=== PATIENT | male | born 1960 | race Caucasian/White ===

== ENCOUNTER 2020-08-16 12:40 | Emergency (ER) | payer OTHER, SELFPAY ==
[2020-08-16 12:41] VITALS: BP 138/78; PULSE 123; RESP 16; TEMP 36.8; O2SAT 98; BMI 23.3
--- NOTE | 2020-08-16 14:07 | EKG12_ITS ---
Test Reason : Blood Pressure : / mmHG Vent. Rate : 114 BPM Atrial Rate : 114 BPM P-R Int : 128 ms QRS Dur : 096 ms QT Int : 326 ms P-R-T Axes : 070 -33 063 degrees QTc Int : 449 ms Sinus tachycardia Left axis deviation Abnormal ECG Confirmed by PEEWEE POLLOCK, KAMILAH ([id number]), legal editor TRU BROWN ([id number]) on 08/17/2020 1:10:33 PM Referred By: SHANTELLE Confirmed By:KAMILAH VIDES MD
--- NOTE | 2020-08-16 14:08 | RAD_ITS ---
STUDY: X-RAY CHEST REASON FOR EXAM: Male, 60 years old. weakness, sob TECHNIQUE: Frontal view of the chest COMPARISON: 13 May 2013 FINDINGS: The lungs are clear and expanded. There is no demonstrated pleural abnormality. Normal size heart. Normal mediastinum and anika. Normal visualized pulmonary arteries. Normal visualized aortic arch and descending thoracic aorta. Normal visualized thoracic spine. Normal visualized ribs, clavicles, and shoulders. There is no demonstrated abnormality of the visualized soft tissue structures of the upper abdomen. RAD/Chest 1 View (Portable) IMPRESSION: Normal x-ray examination of the chest. Electronically Signed: Francis Hardy MD at 15:22 EDT Tel , Service support ,
--- NOTE | 2020-08-16 14:09 | EX.ED.DYSGE1 ---
HPI History of Present Illness Chief Complaint: Weakness Informant: patient and spouse/S.O. Onset/Context/Timing Onset: Weeks (1) Context: Gradual Onset Timing: Continuous Quality: weak Location: all over Current Severity: Severe Maximum Severity: Severe Worsened by: nothing Relieved by: nothing Associated Symptoms Associated Symptoms: n/v/d, a hair more short of breath w/ exertion than usual Narrative Narrative: Patient states he has a high-grade neuroendocrine tumor for which he is on IV immunotherapy for for the past 8 or 9 weeks, he has been knowledgeable about the cancer for about the past 8 years. He is on no medications for anything else. For the past week he has been feeling weak with low energy, especially for the past 3 days when he developed vomiting and diarrhea. Vomiting is nonbilious nonbloody, diarrhea is less than 5 times per day and just watery without blood. He denies any pain anywhere including his abdomen, head, chest. He states he chronically has some mild dyspnea with exertion and it feels like it is a little worse. No pleuritic symptoms. No lightheadedness or palpitations. PFSH PFSH Medical History Cancer Neuroendocrine tumor Non-smoker Home Medications prochlorperazine maleate 10 mg PO PRN PRN 08/16/20 [History Last Taken 08/16/20] Allergy/AdvReac Type Severity Reaction Status Date / Time aspirin AdvReac Other Verified 08/16/20 12:45 Social History Smoking Status: Never smoker ROS ROS ED Constitutional Constitutional ED: Reports as per HPI, anorexia and weakness; Denies chills or fever(s) Eyes Eyes: Denies change in vision or diplopia ENT ENT ED: Denies rhinorrhea or sore throat Cardiovascular Cardiovascular: Denies chest pain, orthopnea or palpitations Respiratory/Chest Respiratory/Chest: Reports as per HPI and dyspnea on exertion; Denies cough or orthopnea Gastrointestinal Gastrointestinal: Reports diarrhea, nausea and vomiting; Denies abdominal pain, coffee ground emesis, hematemesis, hematochezia or melena Genitourinary Genitourinary ED: Denies dysuria or hematuria Musculoskeletal Musculoskeletal: Denies back pain or neck pain Integumentary Denies abscess or rash Neurologic Neurologic: Denies headache(s), paresthesias or weakness Psychiatric Psychiatric: Denies anxiety or suicidal thoughts EXAM Physical Exam Const Vital Signs: 08/16/20 12:41 Temperature 98.3 F Temperature Source Temporal Pulse Rate 123 H Respiratory Rate 16 Blood Pressure 138/78 H Blood Pressure Mean 98 Pulse Ox 98 Oxygen Delivery Method Room Air Positive well nourished and well developed General Appearance ED: well developed and NAD HEENT Reports moist mucous membranes normocephalic and atraumatic Eyes PERRL and EOMs intact bilaterally Neck full ROM and supple Resp normal respiratory effort and clear to auscultation bilaterally Cardio regular rate, regular rhythm and no murmurs Rate: tachycardic GI non-tender and non-distended Auscultation: normoactive bowel sounds Palpation: soft Back/Spine no CVA tenderness General Back: other FROM Extremity normal to inspection General Extremety ED: Negative for edema, pulses abnormal or tenderness General Extremity: Negative for edema or pulses abnormal Neuro oriented x3, CN's II-XII intact bilaterally and no sensory deficits noted Sensorium / Orientation: awake and alert Motor Exam: strength 5/5 throughout Skin no rashes or lesions noted and no wounds MDM MDM MDM Narrative Medical decision making narrative: Patient's work-up is largely unremarkable with the exception of a slightly low potassium (3.4, probably not low enough to be causing this degree of weakness) and prerenal azotemia with a normal creatinine. His 1 view chest x-ray amount of rotation is negative for anything acute. His D-dimer is 0.50, which is well within normal limits when corrected for age. Since there is no pleural effusion or other x-ray abnormality or physical exam abnormality in his lungs, I do not think he needs further thoracic imaging at this time. It is certainly possible this is somehow related to his neuroendocrine tumor or the immunotherapy medications he is receiving. He was offered admission but he is strong enough to stand and walk on his own and has an appointment with his oncologist at [facility] in the morning, so I printed out a copy of his test results to take with him. They are comfortable with this overall plan of discharge home and close outpatient follow-up as scheduled. Lab Data Attestation: I reviewed the patient's lab results. Labs: Laboratory Results - last 24 hr 08/16/20 08/16/20 08/16/20 13:20 13:20 13:20 WBC 11.1 H RBC 4.85 Hgb 14.3 Hct 43.2 MCV 89.1 MCH 29.5 MCHC 33.1 RDW Std Deviation 46.6 H RDW Coeff of Yaya 14.5 Plt Count 482 H MPV 10.5 Immature Gran % (Auto) 1.100 H Neut % (Auto) 72.2 H Lymph % (Auto) 9.9 L Kendall % (Auto) 14.1 H Eos % (Auto) 1.8 Baso % (Auto) 0.9 Absolute Neuts (auto) 8.0 H Absolute Lymphs (auto) 1.10 Nucleated RBC % 0 Differential Comment SCANNED Diff Path Review May foll D-Dimer Quant (PE/DVT) 0.50 H Sodium 136 Potassium 3.4 L Chloride 104 Carbon Dioxide 26.0 Anion Gap 6 BUN 24 H Creatinine 1.08 Estim Creat Clear Calc 74.16 Est GFR (MDRD) Af Amer 89 Est GFR (MDRD) Non-Af 74 BUN/Creatinine Ratio 22.2 H Glucose 141 H Calcium 9.1 Total Bilirubin 0.70 AST 15 ALT 20 Alkaline Phosphatase 156 H Troponin I < 0.015 Total Protein 7.3 Albumin 2.7 L Globulin 4.6 H Albumin/Globulin Ratio 0.6 L Urine Color Urine Clarity Urine pH Ur Specific [place] Urine Protein Urine Glucose (UA) Urine Ketones Urine Occult Blood Urine Nitrite Urine Bilirubin Urine Urobilinogen Ur Leukocyte Esterase Urine RBC Urine WBC Ur Squamous Epith Cells Amorphous Sediment Urine Bacteria Urine Mucus 08/16/20 14:30 WBC RBC Hgb Hct MCV MCH MCHC RDW Std Deviation RDW Coeff of Yaya Plt Count MPV Immature Gran % (Auto) Neut % (Auto) Lymph % (Auto) Kendall % (Auto) Eos % (Auto) Baso % (Auto) Absolute Neuts (auto) Absolute Lymphs (auto) Nucleated RBC % Differential Comment Diff Path Review D-Dimer Quant (PE/DVT) Sodium Potassium Chloride Carbon Dioxide Anion Gap BUN Creatinine Estim Creat Clear Calc Est GFR (MDRD) Af Amer Est GFR (MDRD) Non-Af BUN/Creatinine Ratio Glucose Calcium Total Bilirubin AST ALT Alkaline Phosphatase Troponin I Total Protein Albumin Globulin Albumin/Globulin Ratio Urine Color Yellow Urine Clarity Cloudy Urine pH 6.0 Ur Specific [place] 1.025 Urine Protein 100 H Urine Glucose (UA) Normal Urine Ketones 15 H Urine Occult Blood 150 H Urine Nitrite Negative Urine Bilirubin 3 H Urine Urobilinogen Normal Ur Leukocyte Esterase 25 H Urine RBC 10-25 SEEN Urine WBC 0 SEEN Ur Squamous Epith Cells 0 SEEN Amorphous Sediment 2+ Urine Bacteria 1+ Urine Mucus 1+ Radiography Chest X-Ray - ED: 1 View, Read by ED Physician, No Acute Disease and No Infiltrates Diagnostic Testing: Radiology Impression Chest X-Ray 08/16/20 14:08 IMPRESSION: Normal x-ray examination of the chest. Electronically Signed: Francis Hardy MD at 15:22 EDT Tel , Service support , EKG Initial EKG: Attestation: I personally reviewed and interpreted this EKG as follows: Interpretation: No Acute Injury Pattern and Sinus Tachycardia Comments: leftward axis Prior EKG tracings: available for review (description) Prior: Unchanged Discharge Plan Triage Chief Complaint: Weakness ED Provider: Kilo Tello Dx/Rx/DC Orders Clinical Impression: Generalized weakness, Mild dehydration, Acute hypokalemia, Nausea, vomiting and diarrhea Instructions: ED Weakness (Uncertain Cause) Prescriptions: No Action prochlorperazine maleate 10 mg tablet 10 mg PO PRN PRN (Reason: Nausea) RF: 0 Primary Care Provider: Emma Mejia Referrals: Oncologist, your [Other] - Keep [facility]lin appointment Emma Mejia MD [Primary Care Provider] - Disposition Disposition: Home, self care
--- NOTE | 2020-08-16 14:22 | NURSING ---
NO OLD EKG
[2020-08-16 14:30] LABS: Basophil% 0.9 % (0-1); Eosinophils% 1.8 % (0-5); Hematocrit 43.2 % (40-54); Hemoglobin 14.3 g/dL (13.0-16.5); Lymphocyte % 9.9 % (19-41); Mean Corp Hgb Conc 33.1 g/dL (32-36); Mean Corpuscular Hgb 29.5 pg (27.0-32.0); Mean Corpuscular Volume 89.1 fL (80-94); Mean Platelet Vol. 10.5 fl (6.2-12.0); Monocyte# 1.57 X10^3/uL; Monocyte% 14.1 % (0-10); NRBC Flagged by Analyzer 0 % (0-5); Neutrophil # 8.04 X10^3/uL (2.7-7.7); Neutrophil % 72.2 % (47-70); POSITIVE DIFFERENTIAL YES; POSITIVE MORPHOLOGY YES; Platelet Count 482 K/mm3 (150-450); RBC Distribution Width CV 14.5 % (11.6-14.6); RBC Distribution Width SD 46.6 fl (35.1-43.9); Red Blood Count 4.85 M/mm3 (4.6-6.2); White Blood Count 11.1 K/mm3 (4.4-11.0)
[2020-08-16 14:31] LABS: Differential Indicated SCAN CRITERIA MET
[2020-08-16] MEDS: 0.9% Normal Saline 1,000 ML 1000 ML IV (14:33)
[2020-08-16] MEDS: Ondansetron 4 MG/2 ML Vial IV (14:33)
[2020-08-16 14:39] LABS: Squamous Epithelial Cells - UA 0 SEEN /hpf (0-5); White Blood Cells 0 SEEN /hpf (0-5)
[2020-08-16 14:43] LABS: ALB/GLOB Ratio 0.6 RATIO (0.9-2.4); AST(SGOT) 15 U/L (15-37); Alanine Aminotransfer ALT/SGPT 20 U/L (16-61); Albumin, Serum 2.7 g/dL (3.2-5.0); Alkaline Phosphatase 156 U/L (45-117); Anion Gap 6 (5-15); BUN 24 mg/dL (7-18); BUN/Creat Ratio 22.2 RATIO (10-20); Calcium,Total 9.1 mg/dL (8.5-10.1); Chloride 104 mmol/L (98-107); Creatinine, Serum 1.08 mg/dL (0.70-1.30); EST Glomerular Filtration Rate 74 mL/min (>60); Est Glom Filt Rate - Afr Amer 89 mL/min (>60); Estimated Creatinine Clearance 74.16 ml/min; Globulin 4.6 g/dL (2.2-4.2); Glucose 141 mg/dL (74-106); Potassium 3.4 mmol/L (3.5-5.1); Protein, Total 7.3 g/dL (6.4-8.2); Sodium Level 136 mmol/L (136-145)
[2020-08-16 14:51] LABS: Differential Comment SCANNED
[2020-08-16 14:57] LABS: Color, Urine Yellow (Yellow); Glucose, Dipstick Normal (Normal); Ketone-Dipstick 15 mg/dl (Negative); Leukocyte Esterase-Dipstick 25 /ul (Negative); Nitrite-Dipstick Negative (Negative); Occult Blood-Urine 150 /ul (Negative); Protein-Dipstick 100 mg/dl (Negative); Specific Gravity, Urine 1.025 (1.002-1.030); Urine Clarity Cloudy (Clear); Urine Urobilinogen Normal (Normal)
[2020-08-16 15:01] LABS: Urine Bilirubin Dipstick 3 mg/dL (Negative)
[2020-08-16 15:07] LABS: Bacteria 1+ /hpf (None Seen); Mucous, Urine 1+ /hpf (<or=2+); Red Blood Cells-Urine 10-25 SEEN /hpf (0-5)
[2020-08-16 15:08] LABS: Amorphous Sediment 2+
[2020-08-16] MEDS: Potassium Chloride Oral Tablet 20 MEQ 40 MEQ PO (15:35)
[2020-08-16 15:55] VITALS: BP 120/72; PULSE 103; RESP 15
[2020-08-18 14:11] LABS: Pathologist Review Reviewed
== END 2020-08-16 15:57 | disposition home or self-care (01) ==
PROVIDERS: Emergency Provider Emergency Medicine; PCP Internal Medicine
DX: R53.1 Weakness (principal); E86.0 Dehydration; E87.6 Hypokalemia; R11.2 Nausea with vomiting, unspecified; R19.7 Diarrhea, unspecified; Z79.82 Long term (current) use of aspirin
CPT/HCPCS: 71045; 80053; 81001; 84484; 85025; 85379; 87086; 87426; 93005; 96374; 99284; J7030; A4216; J2405

== ENCOUNTER → 2020-08-21 12:53 | Outpatient (CLI) | payer OTHER, SELFPAY ==
[2020-08-16 12:41] VITALS: BMI 23.3
[2020-08-21 13:11] VITALS: BP 95/68; PULSE 94; RESP 16; TEMP 36.5; O2SAT 99; BMI 23.6
[2020-08-21] MEDS: 0.9% Normal Saline 1,000 ML 1000 ML IV (13:27)
[2020-08-21 14:38] VITALS: BP 101/61; PULSE 84; RESP 16; TEMP 36.4; O2SAT 100
== END ==
PROVIDERS: PCP Internal Medicine
DX: E86.0 Dehydration (principal); R11.0 Nausea; C15.9 Malignant neoplasm of esophagus, unspecified; C78.1 Secondary malignant neoplasm of mediastinum
CPT/HCPCS: 96360; J7030; A4216